=== PATIENT | male | born 1960 | race Caucasian/White ===

== ENCOUNTER → 2023-05-05 13:50 | Outpatient (POV) | payer OTHER, SELFPAY ==
--- NOTE | 2023-05-05 14:19 | EXP.PAIN.OV ---
HPI Data of Consult Patient: new to practice Consult date: 05/05/23 Requesting Physician: Cheryl Moreno APRN Primary Care Provider: Elgin Saini MD Consult Narrative Reason for consult: Right inguinal/groin pain History of present illness: Mr. Greer is a 62 year old male who presents today as a new patient. He is a referral from Dr. Saini' office. Today he rates his pain a 4 out of 10. He does state his pain is all in his right inguinal/groin pain. He does describe this as a pulling sensation with occasional shooting pains into his right thigh. He does state that the pain varies in sensation and aggravated by increased activity. He does state that he was mowing the little bit of grass he had this morning and it did cause significant irritation during today's visit. He states this has been going on for approximately 4 years and is related to a previous hernia repair. He states initially it was related to a work injury that started all of his symptoms. Patient [place] he did see a pain management facility that did prescribe him Lyrica 75 mg twice a day and he would also get inguinal injections approximately every 6 months. Patient does state that this did help along with using a Nexwave by [employer]. He does state that this combination typically did provide significant relief. He is here to establish care for future injections. Patient is currently being managed with pregabalin 75 mg twice a day by Dr. Saini. Patient denies any side effects from this medication. Patient states he had tried [id number] Tylenol and ibuprofen along with heat and ice and topicals with minimal improvement. His Irving is [phone]. Its been reviewed and appropriate. CC: Cheryl Moreno APRN [facility] Disclaimer: The information contained in this section may have been updated after the patient was seen, as this information can be updated by other users. Social History Smoking Status: Unknown if ever smoked alcohol intake: never current occupational status: other Travel in the last 8 weeks: None Review of Systems Review of Systems Review of systems:: pertinent systems reviewed and negative unless documented below Review of systems (narrative): Review of Systems: General: No recent weight changes, no fever, no sleep disturbances Respiratory: No cough, no shortness of air, no recurring pulmonary infections Cardiovascular/peripheral vascular: No chest pain, no palpitations, no edema, no shortness of breath Gastrointestinal: No new onset incontinence, normal bowel movements reported Genitourinary: No new onset incontinence Musculoskeletal: Right inguinal/groin pain Psychiatric: [Normal mood/affect] Neurological: [Denies weakness in extremities], [denies balance issues] Meds Home Medications and Allergies New Prescriptions to Start Prescriptions: Objective Narrative: Physical Exam: General: Alert and oriented x3, no acute distress, pleasant and cooperative Lungs: Respirations even and unlabored, symmetrical chest expansion Eyes: PERRL Musculoskeletal: Flexion and extension of lumbar [spine] somewhat guarded secondary to pain, [antalgic gait noted] Neurological: Speech clear, no gross sensory deficit Oswestry index score of 18 Opioid Risk Tool Opioid Risk Tool-Male Family hx alcohol abuse: No Family hx illegal drugs: No Family hx rx drug abuse: No Personal hx alcohol abuse: No Personal hx illegal drugs: No Personal hx rx drug abuse: No Age: 45+ Hx of sexual abuse: No Mental health issues-ADD,OCD,Bipolar, etc: No Hx of depression: No Male Risk Score: 0 Assessment and Plan *Assessment and plan (1) Right inguinal pain: Status: Acute Category: Medical Code(s): R10.31 - Right lower quadrant pain (2) Chronic pain disorder: Status: Acute Category: Medical Code(s): G89.4 - Chronic pain syndrom
[2023-05-05 14:35] VITALS: BP 149/86; PULSE 94; RESP 18; O2SAT 98; BMI 23.3
== END ==
PROVIDERS: PCP Family Medicine; Visit Provider Nurse Practitioner Family
DX: R10.31 Right lower quadrant pain (principal); G89.4 Chronic pain syndrome
CPT/HCPCS: 99202; G0463

== ENCOUNTER → 2023-06-02 13:43 | Outpatient (POV) | payer OTHER, SELFPAY ==
--- NOTE | 2023-06-02 14:02 | A.OFFVIS_ITS ---
[facility] Pain Management SOAP Note Subjective:: Patient is a pleasant 62-year-old male who presents today for follow-up. We are currently treating the patient for right inguinal pain, chronic pain. Today he rates his pain a 2 out of 10. Patient denies any new trauma or injury. He denies any change location or type of pain he experiences. Patient has had this going on for approximately 4 years from a previous hernia repair. Patient has had inguinal nerve blocks in the past that did provide significant relief. At our last visit we did discuss regarding having this injection done however he wanted to wait because his symptoms were not bothering him as much at that time. Today he does state that it has started to increase and he is interested in scheduling for this injection. Patient is currently managed with pregabalin 75 mg twice a day from Dr. Saini's office. Patient denies any side effects from this medication. His Irving is [phone]. Its been reviewed and appropriate. Review of Systems: General: No recent weight changes, no fever, no sleep disturbances Respiratory: No cough, no shortness of air, no recurring pulmonary infections Cardiovascular/peripheral vascular: No chest pain, no palpitations, no edema, no shortness of breath Gastrointestinal: No new onset incontinence, normal bowel movements reported Genitourinary: No new onset incontinence Musculoskeletal: Right inguinal pain Psychiatric: [Normal mood/affect] Neurological: [Denies weakness in extremities], [denies balance issues] Objective:: Physical Exam: General: Alert and oriented x3, no acute distress, pleasant and cooperative Lungs: Respirations even and unlabored, symmetrical chest expansion Eyes: PERRL Musculoskeletal: Flexion and extension of lumbar [spine] somewhat guarded secondary to pain, [antalgic gait noted] Neurological: Speech clear, no gross sensory deficit Assessment:: Right inguinal pain, chronic pain Plan:: Patient is a spearing seeing significant pain in his right inguinal region related to a previous hernia repair. Patient has had multiple inguinal nerve blocks in the past that did provide significant improvement of more than 75% lasting several months. I have discussed with the patient that he may benefit from right inguinal nerve block. Risk and benefits were discussed with the patient and he would like to proceed forward with this plan of care. Patient wi ll be scheduled for a right inguinal nerve block. Patient has been instructed to contact the clinic with any concerns before the next appointment. Dr. Burnett has reviewed this note and agrees with this plan of care. This note was dictated using voice recognition software and make contain errors or omissions. [facility] Disclaimer: The information contained in this section may have been updated after the patient was seen, as this information can be updated by other users. Medical History (Updated 05/05/23 @ 14:35 by Carla Barnes RN) Arthritis Seasonal allergies Surgical History (Updated 05/05/23 @ 14:36 by Carla Barnes RN) H/O lateral meniscus repair of right knee H/O right inguinal hernia repair Social History (Updated 05/05/23 @ 14:37 by Carla Barnes RN) Smoking Status: Current every day smoker alcohol intake: never current occupational status: unemployed Travel in the last 8 weeks: None
[2023-06-02 14:22] VITALS: BP 142/81; PULSE 87; RESP 20; O2SAT 100; BMI 23.8
== END ==
PROVIDERS: Visit Provider Nurse Practitioner Family
DX: R10.30 Lower abdominal pain, unspecified (principal); G89.29 Other chronic pain
CPT/HCPCS: 99212; G0463

== ENCOUNTER 2023-06-21 10:16 | Day surgery (SDC) | payer OTHER, SELFPAY ==
[2023-06-21 11:01] VITALS: BP 167/86; PULSE 94; RESP 18; TEMP 36.9; O2SAT 98; BMI 23.0
[2023-06-21 11:11] VITALS: BP 155/83; PULSE 94; RESP 18; O2SAT 97
[2023-06-21 11:13] VITALS: BP 155/83; PULSE 94; RESP 18; O2SAT 97
[2023-06-21 11:20] VITALS: BP 143/78; PULSE 87; RESP 18; O2SAT 98
--- NOTE | 2023-06-21 11:28 | EXP.PAIN.PRO ---
Procedure Date: 06/21/23 Time: 11:00 Anesthesiologist:: Edd Lynn CRNA Complications:: None Pre-procedure Diagnosis:: Chronic right ilioinguinal pain. Post-procedure Diagnosis:: Same. Indications for Procedure:: Patient is a very pleasant 62-year-old male that comes our clinic today for right ilioinguinal nerve block. Patient has had this in the past at a different location with some degree of relief. He complains of right inguinal pain that is constant, dull, aching. Ambulation can increase the pain at times. He rates his pain 5/10. Procedure Details:: Details of the procedure explained to the patient. The patient taken the procedure room placed in the supine position on the fluoroscopy table. The area over the right iliac crest was cleaned using chlorhexidine as a cleansing solution. Using fluoroscopy guidance a 25-gauge inch and half needle was used to access the anterior horn of the right iliac crest in 3 separate locations. At each location 4 cc of a solution containing 0.25% Marcaine +1% lidocaine and 20 mg of Depo-Medrol was injected after negative aspiration. Patient tolerated procedure without difficulty. There are no complications. Plan and Disposition:: Patient was discharged without incident.
== END 2023-06-21 11:20 | disposition home or self-care (01) ==
PROVIDERS: PCP Family Medicine; Visit Provider Nurse Anesthetist, Certified Registered
DX: G57.81 Other specified mononeuropathies of right lower limb (principal); R10.30 Lower abdominal pain, unspecified
CPT/HCPCS: 64425; 77002; J1040

== ENCOUNTER → 2023-07-13 11:01 | Outpatient (POV) | payer OTHER, SELFPAY ==
--- NOTE | 2023-07-13 11:38 | A.OFFVIS_ITS ---
[facility] Pain Management SOAP Note Subjective:: Patient is a pleasant 62-year-old male who presents today for follow-up of right ilioinguinal nerve block on 06/21/2023. We are currently treating the patient for right inguinal pain, chronic pain. Today he rates his pain a 2 out of 10. Patient denies any new trauma or injury. He denies any change to location or type of pain he experiences. Patient states he has had at least 50% improvement following this injection and feels like it is still continuing to provide additional relief. Patient states he has been able to increase his activity with decreased pain symptoms. Patient does also use a [employer] TENS unit for additional help. He states with that and his pregabalin 75 mg twice a day from Dr. Saini's office he does well. He has mentioned whether or not down the road if the pregabalin is a medication that our office can continue if needed. His Irving is [phone]. Its been reviewed and appropriate. Review of Systems: General: No recent weight changes, no fever, no sleep disturbances Respiratory: No cough, no shortness of air, no recurring pulmonary infections Cardiovascular/peripheral vascular: No chest pain, no palpitations, no edema, no shortness of breath Gastrointestinal: No new onset incontinence, normal bowel movements reported Genitourinary: No new onset incontinence Musculoskeletal: Right inguinal pain Psychiatric: [Normal mood/affect] Neurological: [Denies weakness in extremities], [denies balance issues] Objective:: Physical Exam: General: Alert and oriented x3, no acute distress, pleasant and cooperative Lungs: Respirations even and unlabored, symmetrical chest expansion Eyes: PERRL Musculoskeletal: Flexion and extension of lumbar [spine] somewhat guarded secondary to pain, [antalgic gait noted] Neurological: Speech clear, no gross sensory deficit Assessment:: Right inguinal pain, chronic pain Plan:: Patient has had significant improvement following his inguinal nerve block and does not require any additional injective therapy at this time. I have counseled the patient that I have no problems taking over his pregabalin prescription however we would want something in writing from Dr. Saini that he wants us to take over this prescription. We will discuss this at future visits. Patient will return to clinic in 1 month for reevaluation of symptoms and plan of care. Patient has been instructed to contact the clinic with any concerns before the next appointment. Dr. Burnett has reviewed this note and agrees with this plan of care. This note was dictated using voice recognition software and make contain errors or omissions. [facility] Disclaimer: The information contained in this section may have been updated after the patient was seen, as this information can be updated by other users. Medical History Arthritis Seasonal allergies Surgical History H/O lateral meniscus repair of right knee H/O right inguinal hernia repair Social History Smoking Status: Current every day smoker alcohol intake: never current occupational status: other Travel in the last 8 weeks: None
[2023-07-13 11:54] VITALS: BP 145/82; PULSE 77; RESP 18; O2SAT 98; BMI 23.4
== END ==
PROVIDERS: PCP Family Medicine; Visit Provider Nurse Practitioner Family
DX: R10.30 Lower abdominal pain, unspecified (principal); G89.29 Other chronic pain
CPT/HCPCS: 99212; G0463

== ENCOUNTER → 2023-08-12 12:57 | Outpatient (POV) | payer OTHER, SELFPAY ==
[2023-08-12 13:20] VITALS: BP 180/93; PULSE 95; RESP 20; BMI 23.3
--- NOTE | 2023-08-12 13:37 | A.OFFVIS_ITS ---
[facility] Pain Management SOAP Note Subjective:: This patient is a very pleasant 62-year-old male that comes our clinic today for follow-up visit. Patient underwent ilioinguinal block on 06/21/2023. Patient states he still 50 to 60% better following the injection. He continues on Lyrica 75 mg 1 p.o. twice daily from his PCP. Patient also using 09 April for additional help. Patient rates his pain today 11/09. Patient reports he has had the inguinal block every 5 to 6 months. I think this is reasonable given the degree of relief. Patient's Irving #[id number] has been reviewed and appropriate. I informed the patient we would take over his Lyrica if in fact Dr. Saini's request. He will discuss with him at his next visit in August. Objective:: Patient is awake alert [place] x3. In no acute distress. Flexion-extension cervical lumbar spine normal. Deep tendon reflexes upper and lower extremities normal. Motor strength upper and lower extremities normal. There is no gross sensory deficit. Gait is normal. Assessment:: Chronic ilioinguinal nerve pain following inguinal hernia repair. Plan:: Patient will return to see us in 3 months. [facility] Disclaimer: The information contained in this section may have been updated after the patient was seen, as this information can be updated by other users. Medical History Arthritis Seasonal allergies Surgical History H/O lateral meniscus repair of right knee H/O right inguinal hernia repair Social History Smoking Status: Current every day smoker alcohol intake: never substance use type: denies use current occupational status: other Travel in the last 8 weeks: None
== END ==
PROVIDERS: PCP Family Medicine; Visit Provider Nurse Anesthetist, Certified Registered
DX: G58.8 Other specified mononeuropathies (principal)
CPT/HCPCS: 99212; G0463

== ENCOUNTER → 2023-11-10 13:10 | Outpatient (POV) | payer OTHER, SELFPAY ==
--- NOTE | 2023-11-10 13:52 | A.OFFVIS_ITS ---
[facility] Pain Management SOAP Note Subjective:: Patient is a pleasant 63-year-old male who presents today for follow-up. We are currently treating the patient for right inguinal pain, chronic pain. Today he rates his pain a 4 out of 10. Patient denies any new trauma or injury. He does state today that his pain is starting to worsen in his right inguinal area. Patient describes this as a aching, throbbing sensation that is worse with increased activity or ambulation. Patient states the pain is all in and around his groin and does interfere with his ability perform activities of daily living such as cooking and cleaning. Patient did previously have a right ilioinguinal nerve block back in May that did provide more than 50 to 60% relief and has lasted up until the last couple of weeks. Patient does feel like his going back towards his baseline and would like to repeat his injection. Patient states on average in the past he has gotten approximately 6 months worth of relief with these injections. He continues to use [employer] TENS unit for additional help. He states with that and his pregabalin 75 mg twice a day from Dr. Saini's office his Irving has been reviewed and is appropriate. Review of Systems: General: No recent weight changes, no fever, no sleep disturbances Respiratory: No cough, no shortness of air, no recurring pulmonary infections Cardiovascular/peripheral vascular: No chest pain, no palpitations, no edema, no shortness of breath Gastrointestinal: No new onset incontinence, normal bowel movements reported Genitourinary: No new onset incontinence Musculoskeletal: Right inguinal pain Psychiatric: [Normal mood/affect] Neurological: [Denies weakness in extremities], [denies balance issues] Objective:: Physical Exam: General: Alert and oriented x3, no acute distress, pleasant and cooperative Lungs: Respirations even and unlabored, symmetrical chest expansion Eyes: PERRL Musculoskeletal: Flexion and extension of lumbar [spine] somewhat guarded secondary to pain Neurological: Speech clear, no gross sensory deficit Assessment:: Right inguinal pain, chronic pain syndrome Plan:: Patient is experiencing worsening pain in his right inguinal region with limited range of motion of his lumbar spine. I have discussed with the patient that he may benefit from repeat right ilioinguinal nerve block. Risk and benefits were discussed with patient and he would like to proceed forward with this plan of care. Patient has not had any blood thinners. Previously patient did have 60% improvement lasting almost 6 months with his last injection done in May. We will schedule the patient for a right ilioinguinal nerve block. Patient has been instructed to contact the clinic with any concerns before the next appointment. Dr. Burnett has reviewed this note and agrees with this plan of care. This note was dictated using voice recognition software and make contain errors or omissions. [facility] Disclaimer: The information contained in this section may have been updated after the patient was seen, as this information can be updated by other users. Medical History (Updated 10/26/23 @ 20:58 by Amrita Smith APRN) Arthritis Right inguinal pain Seasonal allergies Surgical History H/O lateral meniscus repair of right knee H/O right inguinal hernia repair Family History (Updated 10/26/23 @ 15:15 by Panda Bradley) Other No significant family history Social History Smoking Status: Current every day smoker alcohol intake: never substance use type: denies use current occupational status: other Travel in the last 8 weeks: None
[2023-11-10 13:59] VITALS: BP 109/71; PULSE 94; RESP 18; O2SAT 97; BMI 24.7
== END ==
LOC: SC.PAIN 13:11
PROVIDERS: PCP Family Medicine; Visit Provider Nurse Practitioner Family
DX: R10.30 Lower abdominal pain, unspecified (principal); G89.4 Chronic pain syndrome
CPT/HCPCS: 99212; G0463

== ENCOUNTER 2023-11-29 13:20 | Day surgery (SDC) | payer OTHER, SELFPAY ==
[2023-11-29 13:30] VITALS: BP 140/79; PULSE 85; RESP 16; TEMP 36.4; O2SAT 98; BMI 24.9
[2023-11-29 13:50] VITALS: BP 140/74; PULSE 76; RESP 16; O2SAT 98
--- NOTE | 2023-11-29 13:54 | EXP.PAIN.PRO ---
Procedure Date: 11/29/23 Time: 13:45 Anesthesiologist:: Edd Lynn CRNA Complications:: None Pre-procedure Diagnosis:: Right ilioinguinal pain. Post-procedure Diagnosis:: Same. Indications for Procedure:: Very pleasant 63-year-old male that comes our clinic today for repeat right ilioinguinal block. Patient had 4 to 6 months of moderate improvement terms of his overall right inguinal and right testicular pain with previous block. Patient describes his pain as dull, aching, intermittent. He rates his pain 6/10. Procedure Details:: Details of the procedure explained to the patient. The patient taken the procedure room placed in the supine position on the fluoroscopy table. The area over the right iliac crest was cleaned using chlorhexidine as a cleansing solution. Using fluoroscopy guidance a 25-gauge inch and half needle was used to access the anterior horn of the right iliac crest in 3 separate locations. At each location 4 cc of a solution containing 0.25% Marcaine +1% lidocaine and 20 mg of Depo-Medrol was injected after negative aspiration. Patient tolerated procedure without difficulty. There are no complications. Plan and Disposition:: Patient was discharged without incident.
[2023-11-29 13:55] VITALS: BP 124/89; PULSE 62; RESP 18
[2023-11-29] MEDS: methylPREDNISolone ACETATE 80MG/ML VIAL 80 MG (13:55)
[2023-11-29] MEDS: LIDOCAINE 1% 5ML PF VIAL 5 ML (13:55)
[2023-11-29] MEDS: BUPIVACAINE 0.25% 10ML INJ 25 MG IJ (13:55)
[2023-11-29 13:57] VITALS: BP 124/89; PULSE 62; RESP 18; O2SAT 100
== END 2023-11-29 13:50 | disposition home or self-care (01) ==
PROVIDERS: PCP Family Medicine; Visit Provider Nurse Anesthetist, Certified Registered
DX: R10.30 Lower abdominal pain, unspecified (principal); R10.813 Right lower quadrant abdominal tenderness; N50.811 Right testicular pain
CPT/HCPCS: 64425; 77002; J1040

== ENCOUNTER → 2023-12-16 14:42 | Outpatient (POV) | payer MEDICARE, OTHER, SELFPAY ==
--- NOTE | 2023-12-16 15:23 | EXP.PAIN.SOA ---
[facility] Pain Management SOAP Note Subjective:: Patient is a pleasant 63-year-old male who presents today for follow-up of right ilioinguinal nerve block on 11/29/2023. We are currently treating the patient for right inguinal pain, chronic pain. Today he rates his pain a 2 out of 10. Patient denies any new trauma or injury. He does state that he has had at least 50% improvement following this injection and feels like it is still currently providing additional improvement. He states he has been able to increase his activity with decreased pain symptoms and feels overall more functional. He states he does still notice the pain is there however it is much more dull and more manageable. He does state from our last visit he did get added onto the medication of rosuvastatin for his cholesterol. Patient does continue to use his TENS therapy at home and is prescribed pregabalin 75 mg twice a day from Dr. Saini's office. His Irving has been reviewed and is appropriate. Review of Systems: General: No recent weight changes, no fever, no sleep disturbances Respiratory: No cough, no shortness of air, no recurring pulmonary infections Cardiovascular/peripheral vascular: No chest pain, no palpitations, no edema, no shortness of breath Gastrointestinal: No new onset incontinence, normal bowel movements reported Genitourinary: No new onset incontinence Musculoskeletal: Right inguinal pain Psychiatric: [Normal mood/affect] Neurological: [Denies weakness in extremities], [denies balance issues] Objective:: Physical Exam: General: Alert and oriented x3, no acute distress, pleasant and cooperative Lungs: Respirations even and unlabored, symmetrical chest expansion Eyes: PERRL Musculoskeletal: Flexion and extension of lumbar [spine] somewhat guarded secondary to pain, [antalgic gait noted] Neurological: Speech clear, no gross sensory deficit Assessment:: Right inguinal pain, chronic pain Plan:: Patient has had significant improvement following his right inguinal nerve block and does not require any additional injection therapy at this time. Patient does typically get approximately 5 to 6 months with each 1 of these nerve blocks. I have counseled the patient that if he starts having worsening pain before his next appointment he can call and get his visit moved up sooner. Patient will return to clinic in 4 months for reevaluation of symptoms and plan of care. Patient has been instructed to contact the clinic with any concerns before the next appointment. Dr. Burnett has reviewed this note and agrees with this plan of care. This note was dictated using voice recognition software and make contain errors or omissions. [facility] Disclaimer: The information contained in this section may have been updated after the patient was seen, as this information can be updated by other users. Medical History Arthritis Right inguinal pain Seasonal allergies Surgical History H/O lateral meniscus repair of right knee H/O right inguinal hernia repair Family History Other No significant family history Social History Smoking Status: Current every day smoker alcohol intake: never substance use type: denies use current occupational status: other Travel in the last 8 weeks: None
[2023-12-16 15:24] VITALS: BP 151/91; PULSE 78; RESP 18; O2SAT 98; BMI 23.8
== END ==
PROVIDERS: PCP Family Medicine; Visit Provider Nurse Practitioner Family
DX: R10.31 Right lower quadrant pain (principal); G89.29 Other chronic pain
CPT/HCPCS: 99212; G0463

== ENCOUNTER 2024-01-09 13:32 | Outpatient (CLI) | payer MEDICARE, OTHER, SELFPAY ==
[2024-01-09 15:00] LABS: Chol/HDL Ratio 2.7 (1-3.5); Cholesterol 119 mg/dl (140-200); HDL Cholesterol 44 mg/dl (40-60); Triglycerides 126 mg/dl (30-150); VLDL Cholesterol 25 mg/dL (0-40)
[2024-01-09 15:10] LABS: Direct LDL Cholesterol 50.44 mg/dL (100-129)
== END 2024-01-09 23:59 ==
PROVIDERS: PCP Family Medicine; Visit Provider Internal Medicine Cardiovascular Disease
DX: I35.0 Nonrheumatic aortic (valve) stenosis (principal); E78.2 Mixed hyperlipidemia
CPT/HCPCS: 36415; 80061

== ENCOUNTER 2024-01-23 12:50 | Outpatient (CLI) | payer MEDICARE, OTHER, SELFPAY ==
[2024-01-23 14:31] LABS: Alanine Aminotransferase 18 U/L (12-78); Alkaline Phosphatase 101 U/L (38-126); Aspartate Amino Transferase 26 U/L (17-59); Bilirubin,Direct 0.1 mg/dl (0.0-0.4); Bilirubin,Indirect 0.7 mg/dL (0.0-0.9); Bilirubin,Total 0.8 mg/dl (0.2-1.3); Bilirubin,Unconjugated 0.7 mg/dL (0.0-1.1); Total Protein,Serum 6.5 g/dl (6.3-8.2)
== END 2024-01-23 23:59 ==
PROVIDERS: PCP Family Medicine; Visit Provider Internal Medicine Cardiovascular Disease
DX: I35.0 Nonrheumatic aortic (valve) stenosis (principal); E78.2 Mixed hyperlipidemia
CPT/HCPCS: 36415; 80076

== ENCOUNTER 2024-04-12 13:10 | Outpatient (POV) | payer OTHER, MEDICARE, SELFPAY ==
[2024-04-12 13:33] VITALS: BP 146/75; BP 163/84; PULSE 63; RESP 16; O2SAT 97; BMI 23.4
--- NOTE | 2024-04-12 13:49 | EXP.PAIN.SOA ---
[facility] Pain Management SOAP Note Subjective:: Patient is a pleasant 63-year-old male who presents today for 6-month follow-up. Today he rates his pain at 3 out of 10 however states the pain will get up to a 6 out of 10 with increased activity. Patient denies any new trauma or injury. Patient states he continues to have right inguinal pain and describes it as an aching, throbbing sensation that does radiate in and around his groin. Patient states the pain does interfere with his ability perform activities of daily living such as cooking and cleaning. Patient does get significant relief with the nerve blocks that typically last on average about 5 to 6 months. Patient's last injection was on November 29, 2023 that did provide 50% improvement. Patient states that he does get overall decreased pain and better quality of life with these injections. He would like to proceed forward with repeat injections. He is prescribed pregabalin from his PCP. His Irving has been reviewed and is appropriate. Review of Systems: General: No recent weight changes, no fever, no sleep disturbances Respiratory: No cough, no shortness of air, no recurring pulmonary infections Cardiovascular/peripheral vascular: No chest pain, no palpitations, no edema, no shortness of breath Gastrointestinal: No new onset incontinence, normal bowel movements reported Genitourinary: No new onset incontinence Musculoskeletal: Right inguinal pain Psychiatric: [Normal mood/affect] Neurological: [Denies weakness in extremities], [denies balance issues] Objective:: Physical Exam: General: Alert and oriented x3, no acute distress, pleasant and cooperative Lungs: Respirations even and unlabored, symmetrical chest expansion Eyes: PERRL Musculoskeletal: Flexion and extension of lumbar [spine] somewhat guarded secondary to pain, [antalgic gait noted] right inguinal point tenderness Neurological: Speech clear, no gross sensory deficit Assessment:: Chronic pain, right inguinal pain Plan:: Due to the patient starting to experience more pain on a day-to-day basis I have discussed with the patient that he may benefit from a repeat right ilioinguinal nerve block. Risk and benefits were discussed with patient and he would like to proceed forward with this plan of care. Patient has tried and failed conservative therapy including continued at home exercising and stretching between injections. We will schedule the patient for his repeat right ilioinguinal nerve block under fluoroscopy. Patient with his last injection received 50% relief lasting approximately 5 to 6 months. Patient has been instructed to contact the clinic with any concerns before the next appointment. Dr. Burnett has reviewed this note and agrees with this plan of care. This note was dictated using voice recognition software and make contain errors or omissions. [facility] Disclaimer: The information contained in this section may have been updated after the patient was seen, as this information can be updated by other users. Medical History Seasonal allergies Arthritis Right inguinal pain Surgical History H/O lateral meniscus repair of right knee H/O right inguinal hernia repair Family History Other No significant family history Social History Smoking Status: Current every day smoker alcohol intake: never substance use type: denies use current occupational status: employed Travel in the last 8 weeks: None
== END 2024-04-12 23:59 | disposition home or self-care (01) ==
LOC: SC.PAIN 13:11
PROVIDERS: PCP Family Medicine; Visit Provider Nurse Practitioner Family
DX: G89.29 Other chronic pain (principal); R10.30 Lower abdominal pain, unspecified
CPT/HCPCS: 99212; G0463

== ENCOUNTER 2024-05-01 13:22 | Day surgery (SDC) | payer OTHER, SELFPAY ==
[2024-05-01 13:49] VITALS: BP 156/75; PULSE 87; RESP 18; TEMP 36.6; O2SAT 98; BMI 23.0
[2024-05-01] MEDS: LIDOCAINE 1% 5ML PF VIAL 5 ML (14:06)
[2024-05-01 14:07] VITALS: BP 166/84; PULSE 82; RESP 18; O2SAT 98
[2024-05-01] MEDS: BUPIVACAINE 0.25% 10ML INJ 25 MG IJ (14:07)
[2024-05-01] MEDS: methylPREDNISolone ACETATE 80MG/ML VIAL 80 MG (14:07)
[2024-05-01 14:08] VITALS: BP 166/84; PULSE 88; RESP 18; O2SAT 98
--- NOTE | 2024-05-01 14:17 | EXP.PAIN.PRO ---
Procedure Date: 05/01/24 Time: 13:55 Anesthesiologist:: Edd Lynn CRNA Complications:: None Pre-procedure Diagnosis:: Ilioinguinal pain. Right testicular pain. Post-procedure Diagnosis:: Same. Indications for Procedure:: Patient is a pleasant 63-year-old male comes to our clinic today for repeat ilioinguinal hypogastric nerve block. Patient has continued to have some ilioinguinal pain with right testicular radicular symptoms following multiple inguinal hernia repairs. He has had good success with the injection in the past. Procedure Details:: Details of the procedure explained to the patient. The patient taken procedure room placed in the supine position. The area over the right inguinal was cleansed using chlorhexidine as a cleansing solution. Using ultrasound guidance in plane the needle was advanced through the exterior and internal oblique to the ilioinguinal ligament. After negative aspiration 10 cc of a solution containing 0.25% Marcaine +1% lidocaine and 40 mg of Depo-Medrol was injected. Patient tolerated procedure without difficulty. No complications. Plan and Disposition:: Patient was discharged without incident.
[2024-05-01 14:20] VITALS: BP 156/75; PULSE 80; RESP 18; O2SAT 98
== END 2024-05-01 14:23 | disposition home or self-care (01) ==
PROVIDERS: PCP Family Medicine; Visit Provider Nurse Anesthetist, Certified Registered
DX: G57.81 Other specified mononeuropathies of right lower limb (principal); N50.811 Right testicular pain
CPT/HCPCS: 64425; 76942; J1010

== ENCOUNTER 2024-05-24 13:16 | Outpatient (POV) | payer OTHER, MEDICARE, SELFPAY ==
[2024-05-24 13:46] VITALS: BP 159/81; PULSE 81; RESP 18; O2SAT 98; BMI 23.3
--- NOTE | 2024-05-24 14:04 | EXP.PAIN.SOA ---
[facility] Disclaimer: The information contained in this section may have been updated after the patient was seen, as this information can be updated by other users. Medical History (Updated 05/24/24 @ 14:05 by Cheryl Moreno APRN) Right inguinal pain Seasonal allergies Arthritis Surgical History H/O lateral meniscus repair of right knee H/O right inguinal hernia repair Family History Other No significant family history Social History Smoking Status: Current every day smoker alcohol intake: never substance use type: denies use current occupational status: other Travel in the last 8 weeks: None PM Subjective & Objective Subjective Subjective:: Patient is a pleasant 63-year-old male who presents today for follow-up of his right ilioinguinal hypogastric nerve block on 05/01/2024. Today he rates his pain a 2 out of 10. Patient denies any new changes or injuries. He does state that he has had at least 50% relief. He states this is still ongoing. He states he is able to move around easier with increased function and does not even notice much better range of motion. Patient states often times when the pain is worse he can barely lift his leg on the right side however now he is able to do this with no issues. Patient is prescribed gabapentin from his PCP. Patient does typically get about 6 months with each of these injections. His Irving has been reviewed and is appropriate. Review of Systems: General: No recent weight changes, no fever, no sleep disturbances Respiratory: No cough, no shortness of air, no recurring pulmonary infections Cardiovascular/peripheral vascular: No chest pain, no palpitations, no edema, no shortness of breath Gastrointestinal: No new onset incontinence, normal bowel movements reported Genitourinary: No new onset incontinence Musculoskeletal: Right inguinal pain Psychiatric: [Normal mood/affect] Neurological: [Denies weakness in extremities], [denies balance issues] Pain at rest (0-10 scale): 2 Objective Objective:: Physical Exam: General: Alert and oriented x3, no acute distress, pleasant and cooperative Lungs: Respirations even and unlabored, symmetrical chest expansion Eyes: PERRL Musculoskeletal: Flexion and extension of lumbar spine within normal limits Neurological: Speech clear, no gross sensory deficit Has patient had previous pain injection?: Yes Percent improvement in pain since last injection: 50% Conservative treatment options previously tried: Home exercise plan Length of treatment: Longer than 12 weeks Meds Home Medications and Allergies Home Medications ?Medication ?Instructions ?Recorded ?Confirmed ?Type pregabalin 75 mg capsule 75 mg PO DAILY Pain 05/05/23 05/01/24 History ofloxacin 0.3 % eye drops 1 drp Eye-Left QID #10 mL 10/26/23 05/01/24 Rx rosuvastatin 20 mg tablet 20 mg PO DAILY 04/12/24 05/01/24 History New Prescriptions to Start Prescriptions: Allergies Allergy/AdvReac Type Severity Reaction Status Date / Time No Known Allergies Allergy Verified 11/29/23 13:35 Assessment and Plan *Assessment and plan (1) Right inguinal pain: Status: Acute Category: Medical Code(s): R10.31 - Right lower quadrant pain Plan Patient has had significant improvement following this injection and does not require any additional injection therapy at this time. Patient will return to clinic in 5 months for reevaluation of symptoms and plan of care. Patient has been instructed to contact the clinic with any concerns before the next appointment. Dr. Burnett has reviewed this note and agrees with this plan of care. This note was dictated using voice recognition software and make contain errors or omissions. All injections are used with Lidocaine or Bupivacaine and Depo Medrol.
== END 2024-05-24 23:59 | disposition home or self-care (01) ==
PROVIDERS: PCP Family Medicine; Visit Provider Nurse Practitioner Family
DX: R10.31 Right lower quadrant pain (principal); F17.210 Nicotine dependence, cigarettes, uncomplicated
CPT/HCPCS: 99212; G0463

== ENCOUNTER 2024-08-27 10:57 | Day surgery (SDC) | payer MEDICARE, OTHER, SELFPAY ==
[2024-08-22 10:16] VITALS: BMI 22.4
[2024-08-27 11:46] VITALS: BP 140/84; PULSE 89; RESP 20; TEMP 36.2; O2SAT 98
[2024-08-27] MEDS: LACTATED RINGERS 1000ML 1,000 ML 25 ML IV (11:54)
--- NOTE | 2024-08-27 12:04 | P.PNANES_ITS ---
[facility] Disclaimer: The information contained in this section may have been updated after the patient was seen, as this information can be updated by other users. Medical History Hx of multiple pulmonary nodules History of cardiac murmur Right inguinal pain Seasonal allergies Arthritis Surgical History H/O lateral meniscus repair of right knee H/O right inguinal hernia repair Family History Other No significant family history Social History Smoking Status: Current every day smoker alcohol intake: never substance use type: denies use current occupational status: other Travel in the last 8 weeks: None [facility] Anesthesia Checklist Patient Identification Patient Identification: Arm Band Structural Data Admitted From: Home Planned Operative Procedure/s: Colonoscopy Consent for Planned Operative Procedure(s) Verified: Yes Verified Documents: Surgical Consent and History and Physical NPO Status Verified Time NPO: 00:00 Additional verifications Anesthesia Reactions: No Hx Blood Transfusions: No Blood Transfusion Reaction: No Airway Assessment Mallampati Score:: Class II C-Spine Mobility Assessed: Yes TMJ Mobility Assessed: Yes Dentition: Dentures-good fit (upper partial removed) Neurological Assessment Level of Consciousness: Awake, Alert and Appropriate Anesthesia Plan Anesthesia Risk discussed: Yes Anesthesia Plan: Verified ASA Class: II Anesthesia Type: MAC
--- NOTE | 2024-08-27 12:33 | EXP.HP ---
History of Present Illness *Admission Date: 08/27/24 *Reason for visit:: Positive Cologuard *History of present illness: Mr. Greer is a 63-year-old gentleman who is here for positive Cologuard testing. The examination is deemed medically necessary for colonoscopy. The patient has been seen, interviewed and examined prior to the procedure by both myself and the anesthesia provider. [facility] Disclaimer: The information contained in this section may have been updated after the patient was seen, as this information can be updated by other users. Medical History (Updated 08/27/24 @ 12:43 by William Roca II, MD) Hx of multiple pulmonary nodules History of cardiac murmur Right inguinal pain Seasonal allergies Arthritis Surgical History H/O lateral meniscus repair of right knee H/O right inguinal hernia repair Family History Other No significant family history Social History Smoking Status: Current every day smoker alcohol intake: never substance use type: denies use current occupational status: other Travel in the last 8 weeks: None Other Medical History Have you received the Flu Vaccine for this season: No Have you received the Pneumonia Vaccine: No Review of Systems Review of Systems Review of systems (narrative): Negative *Cardiovascular Comments: Negative *Gastrointestinal Comments: Negative *Genitourinary Comments: Negative *Musculoskeletal Comments: Negative *Neurologic Comments: Negative Meds Home Medications and Allergies Home Medications ?Medication ?Instructions ?Recorded ?Confirmed ?Type pregabalin 75 mg capsule 75 mg PO DAILY Pain 05/05/23 08/22/24 History rosuvastatin 20 mg tablet 20 mg PO DAILY 04/12/24 08/22/24 History New Prescriptions to Start Prescriptions: Allergies Allergy/AdvReac Type Severity Reaction Status Date / Time gabapentin Allergy Nausea Verified 08/27/24 11:45 Exam Data for Last 24 hours Vital signs and Labs for Last 24 Hours: Temp Pulse Resp BP Pulse Ox O2 Del Method 97.1 F L 89 20 140/84 98 Room Air 08/27/24 11:46 08/27/24 11:46 08/27/24 11:46 08/27/24 11:46 08/27/24 11:46 08/27/24 11:46 *Routine HEENT Exam Head: Present normocephalic Eye: Present EOMI and PERRL ENT: Present mucous membranes moist *Routine Neck Exam Neck: Present supple *Routine Respiratory Exam Respiratory: Present CTA bilaterally *Routine Cardiovascular Exam Cardiovascular: Present RRR *Routine Abdominal Exam Abdominal: Present soft and normoactive bowel sounds; Absent tenderness *Routine Rectal Exam Rectal:: deferred *Routine Genitalia Exam Genitalia:: deferred *Routine Extremities Exam Extremities: Absent cyanosis, clubbing or edema *Routine Skin Exam Skin: Present warm; Absent rash *Routine Neurological Exam Neurological: Present alert and oriented X3 Assessment and Plan *Assessment and plan (1) Positive colorectal cancer screening using Cologuard test: Status: Acute Category: Medical Code(s): R19.5 - Other fecal abnormalities Plan A/P: 1. Positive Cologuard is the preprocedural diagnosis. The patient will be anesthetized/sedated using MAC sedation. The patient has been seen and examined. Cardiac and lung assessment prior to the examination is stable. Proceed with planned colonoscopy
[2024-08-27 12:38] VITALS: O2SAT 98
--- NOTE | 2024-08-27 12:43 | HMH.PROCNOTE ---
[facility] Procedure Note Date: 08/27/24 Time: 13:06 Procedure Note:: Colonoscopy Procedure Report: Colonoscopy with cold snare polypectomy, snare cautery and Endo Clip placement Endoscopist: William Roca II, MD Referring physician: Elgin Saini MD Date of Procedure: August 27, 2024 Equipment: Olympus 190 variable stiffness pediatric colonoscope Sedation: MAC sedation Indication: Mr. Greer is a 63-year-old gentleman who is here for colonoscopy secondary to a positive Cologuard. This is his first colonoscopy. He reports no abdominal pain, weight loss, change in his bowel habits or rectal bleeding. He reports no family history of colon cancer. He does get occasional loose stools but has mostly regular bowel function. Procedure: Prior to the procedure, a history and physical exam was performed, and patient's medications and allergies were reviewed. The risks, benefits and alternatives of the sedation and procedure were discussed with the patient. All questions were answered and informed consent was obtained. The patient was brought to the procedure room. Patient identification and proposed procedure were verified by the physician and the nurse. The patient was placed in a left lateral decubitus position and the scope was passed under direct vision. Throughout the procedure, the patient's blood pressure, pulse, and oxygen saturations were monitored continuously. The colonoscopy was accomplished without difficulty. The patient tolerated the procedure well. Findings: On digital rectal examination there was normal rectal tone. There were no external hemorrhoids. The prostate was mildly firm, 2+, symmetric without nodules. The colonoscope was introduced through the anal canal to the rectum and advanced to the cecum. The ileocecal valve and appendiceal orifice were identified. The scope was advanced a short distance into the ileum which appeared grossly normal. The scope was then withdrawn into the colon. There were 7 colon polyps (cecum x 1 (5 mm) ascending x 2 (5 and 6 mm), transverse x 2 (6 and 8 mm), descending x 1 (5 to 6 mm) and pedunculated sigmoid x 1 (16 mm)). All but the sigmoid polyp were removed via cold snare polypectomy. The pedunculated sigmoid larger polyp was removed via snare cautery. There was minor heme at the stalk site of polypectomy and a single Endo Clip was placed over the stalk to provide hemostasis. The remaining cecum, ascending and transverse colon and mucosa were grossly normal. There were scattered diverticuli throughout the descending and sigmoid colon (LEFT colon). There was some mild haustral edema/patchy erythema of the sigmoid colon suggestive mild chronic sigmoid diverticulitis. The rectum itself was normal. Upon retroflexion within the rectum there were grade 1-2 internal hemorrhoids. The preparation was excellent throughout with [place] Preparation Score of 9. The cecal time was 18 minutes. Impression: 1. Pedunculated sigmoid polyp (16 mm) 2. 6 additional colonic polyps (ranging in size from 5 to 8 mm) 3. Left-sided diverticulosis with evidence of patchy focal mild chronic sigmoid diverticulitis 4. Grade 1-2 internal hemorrhoids Plan: I will follow-up the polyp histology and recommend repeat surveillance colonoscopy again in 3 years. I would encourage bulking psyllium fiber supplementation on a regular and daily basis.
[2024-08-27 13:07] VITALS: BP 105/71; PULSE 81; RESP 16; TEMP 36.6; O2SAT 96
[2024-08-27 13:17] VITALS: BP 132/65; PULSE 81; RESP 16; O2SAT 97
[2024-08-27 13:37] VITALS: BP 113/82; PULSE 84; RESP 18; O2SAT 98
== END 2024-08-27 13:37 | disposition home or self-care (01) ==
PROVIDERS: PCP Family Medicine; Visit Provider Internal Medicine Gastroenterology
PROC: 0DJD8ZZ Inspection of Lower Intestinal Tract, Via Natural or Artificial Opening Endoscopic (ICD-10-PCS; CPT 45378; principal; 2024-08-27 12:30)
DX: Z12.11 Encounter for screening for malignant neoplasm of colon (principal); R19.5 Other fecal abnormalities; D12.2 Benign neoplasm of ascending colon; D12.0 Benign neoplasm of cecum; D12.4 Benign neoplasm of descending colon; D12.5 Benign neoplasm of sigmoid colon; D12.3 Benign neoplasm of transverse colon; K57.32 Diverticulitis of large intestine without perforation or abscess without bleeding; K64.1 Second degree hemorrhoids; F17.210 Nicotine dependence, cigarettes, uncomplicated
CPT/HCPCS: 45385; 88305; J7120

== ENCOUNTER 2024-10-15 13:54 | Outpatient (POV) | payer MEDICARE, SELFPAY ==
--- NOTE | 2024-10-15 14:27 | A.OFFVIS_ITS ---
[facility] Disclaimer: The information contained in this section may have been updated after the patient was seen, as this information can be updated by other users. Medical History (Updated 08/27/24 @ 12:43 by William Roca II, MD) Hx of multiple pulmonary nodules History of cardiac murmur Right inguinal pain Seasonal allergies Arthritis Surgical History H/O lateral meniscus repair of right knee H/O right inguinal hernia repair Family History Other No significant family history Social History Smoking Status: Current every day smoker alcohol intake: never substance use type: denies use current occupational status: other Travel in the last 8 weeks: None PM Subjective & Objective Subjective Subjective:: Patient is a pleasant 64-year-old male who presents today for worsening right inguinal pain. Today he rates his pain a 4 out of 10 however states it will go to a 6 out of 10 with increased activity. Patient denies any new trauma or injury. He does state that he still has the chronic right inguinal pain related to his previous hernia surgery. Patient does describe it as an aching, throbbing sensation with occasional sharp shooting pains. Patient does typically get more than 50% relief with ileoinguinal nerve blocks and his last one was in April. Patient does state today that he feels like it is wearing off and would like to get scheduled back for a repeat injection. Patient does state the pain is starting to interfere with his ability perform activities of daily living such as cooking and cleaning. Patient does on average given right around 5 to 6 months relief with these injections. He does state unrelated to our office that he is currently waiting for an appointment with Dr. Kovacs for possible left foot issues. He states that his primary care sent that appointment referral. He denies any other changes from her last appointment. His Irving has been reviewed and is appropriate. Review of Systems: General: No recent weight changes, no fever, no sleep disturbances Respiratory: No cough, no shortness of air, no recurring pulmonary infections Cardiovascular/peripheral vascular: No chest pain, no palpitations, no edema, no shortness of breath Gastrointestinal: No new onset incontinence, normal bowel movements reported Genitourinary: No new onset incontinence Musculoskeletal: Right inguinal pain Psychiatric: [Normal mood/affect] Neurological: [Denies weakness in extremities], [denies balance issues] Pain at rest (0-10 scale): 6 Objective Objective:: Physical Exam: General: Alert and oriented x3, no acute distress, pleasant and cooperative Lungs: Respirations even and unlabored, symmetrical chest expansion Eyes: PERRL Musculoskeletal: Flexion and extension of lumbar [spine] somewhat guarded secondary to pain, [antalgic gait noted] point tenderness along the right inguinal area Neurological: Speech clear, no gross sensory deficit Has patient had previous pain injection?: No Conservative treatment options previously tried: Home exercise plan Length of treatment: Longer than 12 weeks Meds Home Medications and Allergies Home Medications ?Medication ?Instructions ?Recorded ?Confirmed ?Type pregabalin 75 mg capsule 75 mg PO DAILY Pain 05/05/23 08/22/24 History rosuvastatin 20 mg tablet 20 mg PO DAILY 04/12/24 08/22/24 History New Prescriptions to Start Prescriptions: Allergies Allergy/AdvReac Type Severity Reaction Status Date / Time gabapentin Allergy Nausea Verified 08/27/24 11:45 Assessment and Plan *Assessment and plan (1) Right inguinal pain: Status: Acute Category: Medical Code(s): R10.31 - Right lower quadrant pain Plan Patient is experiencing increasing pain in his right inguinal area with point tenderness. Patient denies get approximately 5 to 6 months relief from right ilioinguinal nerve blocks from our office that do provide more than 50% relief. I have reviewed over risk and benefits of repeat injection and he would like to proceed forward with this plan of care. Patient has continued conservative treatment including oral medications of Tylenol and ibuprofen along with heat and ice and topicals and continued at home stretching exercise for longer than 12 weeks in between injections. Patient does get significant improvement in function from our injections. Patient will be scheduled for repeat right ilioinguinal nerve block. Patient has been instructed to contact the clinic with any concerns before the next appointment. Dr. Burnett has reviewed this note and agrees with this plan of care. This note was dictated using voice recognition software and make contain errors or omissions. All injections are used with Lidocaine, Bupivacaine and Depo Medrol. Occasionally urine drug screen is needed to verify patient's compliance with our office pain contract. This is ordered based off specific treatments related to chronic pain with the potential to abuse certain medications.
[2024-10-15 15:50] VITALS: BP 130/78; PULSE 93; RESP 14; O2SAT 93; BMI 24.4
== END 2024-10-15 23:59 | disposition home or self-care (01) ==
LOC: SC.PAIN 13:57
PROVIDERS: PCP Family Medicine; Visit Provider Nurse Practitioner Family
DX: R10.31 Right lower quadrant pain (principal); F17.210 Nicotine dependence, cigarettes, uncomplicated; Z73.89 Other problems related to life management difficulty
CPT/HCPCS: 99212; G0463

== ENCOUNTER 2024-11-14 12:55 | Outpatient (CLI) | payer MEDICARE, OTHER, SELFPAY ==
--- NOTE | 2024-11-14 12:59 | XR_ITS ---
FINAL REPORT CLINICAL HISTORY: Foot pain FINDINGS: Three views show no evidence of acute displaced fracture or dislocation of the visualized bony architecture. There is mild calcaneal spurring. There are no significant arthritic changes. IMPRESSION: No acute findings or significant arthritic disease. Reviewed, Interpreted and Dictated by Terell Odonnell MD Transcribed by Ijeoma Alonzo Authenticated and [facility]
--- NOTE | 2024-11-14 12:59 | XR_ITS ---
FINAL REPORT CLINICAL HISTORY: Foot pain FINDINGS: Three views show no evidence of acute displaced fracture or dislocation of the visualized bony architecture. There is mild to moderate calcaneal spurring. There are no significant arthritic changes. IMPRESSION: No acute findings or significant arthritic disease. Reviewed, Interpreted and Dictated by Terell Odonnell MD Transcribed by Ijeoma Alonzo Authenticated and [facility]
== END 2024-11-14 23:59 | disposition home or self-care (01) ==
LOC: RAD 12:57
PROVIDERS: PCP Family Medicine; Visit Provider Nurse Practitioner
DX: M72.2 Plantar fascial fibromatosis (principal); M79.671 Pain in right foot; M79.672 Pain in left foot
CPT/HCPCS: 73630

== ENCOUNTER 2024-11-20 13:36 | Day surgery (SDC) | payer OTHER, SELFPAY ==
[2024-11-20 14:02] VITALS: BP 150/78; PULSE 76; RESP 18; O2SAT 98; BMI 23.7
--- NOTE | 2024-11-20 14:09 | EXP.PAIN.PRO ---
Procedure Date: 11/20/24 Time: 14:00 Anesthesiologist:: Edd Lynn CRNA Complications:: None Pre-procedure Diagnosis:: Right testicular pain. Right inguinal pain. Status post right hernia repair. Post-procedure Diagnosis:: Same. Indications for Procedure:: Patient is a pleasant 64-year-old male who comes our clinic today for repeat of the right ilioinguinal nerve block. Patient is status post right inguinal hernia repair. Continues with right inguinal pain. Right testicular pain. He rates his pain 6/10. He reports responding very well to ilioinguinal nerve blocks in the past. Procedure Details:: Details of the procedure explained to the patient. The patient taken procedure room placed in the supine position. The area over the right inguinal was cleansed using chlorhexidine as a cleansing solution. Using ultrasound guidance in plane the needle was advanced through the exterior and internal oblique to the ilioinguinal ligament. After negative aspiration 10 cc of a solution containing 0.25% Marcaine +1% lidocaine and 40 mg of Depo-Medrol was injected. Patient tolerated procedure without difficulty. No complications. Plan and Disposition:: Patient was discharged without incident.
[2024-11-20 14:10] VITALS: BP 157/77; PULSE 87; RESP 17; O2SAT 96
[2024-11-20] MEDS: BUPIVACAINE 0.25% 10ML INJ 25 MG IJ (14:33)
[2024-11-20] MEDS: LIDOCAINE 1% 5ML PF VIAL 5 ML (14:34)
[2024-11-20 14:35] VITALS: BP 167/83; PULSE 83; RESP 18; O2SAT 97
== END 2024-11-20 14:10 | disposition home or self-care (01) ==
PROVIDERS: PCP Family Medicine; Visit Provider Nurse Anesthetist, Certified Registered
DX: R10.31 Right lower quadrant pain (principal); N50.811 Right testicular pain; Z98.890 Other specified postprocedural states
CPT/HCPCS: 64425; 77002; J1010

== ENCOUNTER 2024-12-06 13:03 | Outpatient (POV) | payer OTHER, SELFPAY ==
--- NOTE | 2024-12-06 13:34 | A.OFFVIS_ITS ---
[facility] Disclaimer: The information contained in this section may have been updated after the patient was seen, as this information can be updated by other users. Medical History Hx of multiple pulmonary nodules History of cardiac murmur Right inguinal pain Seasonal allergies Arthritis Surgical History H/O lateral meniscus repair of right knee H/O right inguinal hernia repair Family History Other No significant family history Social History Smoking Status: Current every day smoker alcohol intake: never substance use type: denies use current occupational status: other Travel in the last 8 weeks: None PM Subjective & Objective Subjective Subjective:: Patient is a pleasant 64-year-old male who presents today for follow-up of his repeat right ilioinguinal nerve block on 11/20/2024. Today he rates his pain a 2 out of 10. He states that he has had 75% relief following this injection and feels like it is still working well. He states he has been able to move around easier with overall decreased pain and feels much more functional. Patient does typically get about 5 to 6 months relief with each of these injections. His Irving has been reviewed and is appropriate. Review of Systems: General: No recent weight changes, no fever, no sleep disturbances Respiratory: No cough, no shortness of air, no recurring pulmonary infections Cardiovascular/peripheral vascular: No chest pain, no palpitations, no edema, no shortness of breath Gastrointestinal: No new onset incontinence, normal bowel movements reported Genitourinary: No new onset incontinence Musculoskeletal: Right inguinal pain Psychiatric: [Normal mood/affect] Neurological: [Denies weakness in extremities], [denies balance issues] Pain at rest (0-10 scale): 2 Objective Objective:: Physical Exam: General: Alert and oriented x3, no acute distress, pleasant and cooperative Lungs: Respirations even and unlabored, symmetrical chest expansion Eyes: PERRL Musculoskeletal: Flexion and extension of lumbar [spine] somewhat guarded secondary to pain, [antalgic gait noted] Neurological: Speech clear, no gross sensory deficit Has patient had previous pain injection?: Yes Percent improvement in pain since last injection: 75% Conservative treatment options previously tried: Home exercise plan Length of treatment: Longer than 12 weeks Meds Home Medications and Allergies Home Medications ?Medication ?Instructions ?Recorded ?Confirmed ?Type pregabalin 75 mg capsule 75 mg PO DAILY Pain 05/05/23 11/20/24 History rosuvastatin 20 mg tablet 20 mg PO DAILY 04/12/24 11/20/24 History melatonin 5 mg capsule 5 mg PO HS 11/13/24 11/20/24 History sodium,potassium,mag sulfates 17.5 PO ONCE 11/13/24 11/13/24 History gram-3.13 gram-1.6 gram oral soln New Prescriptions to Start Prescriptions: Allergies Allergy/AdvReac Type Severity Reaction Status Date / Time gabapentin Allergy Nausea Verified 11/13/24 14:06 Assessment and Plan *Assessment and plan (1) Right inguinal pain: Status: Acute Category: Medical Code(s): R10.31 - Right lower quadrant pain Plan Patient has had significant improvement and does not require any additional injection therapy at this time. Patient will return to clinic in about 4 months for reevaluation of symptoms and plan of care. Patient has been instructed to contact the clinic with any concerns before the next appointment. Dr. Burnett has reviewed this note and agrees with this plan of care. This note was dictated using voice recognition software and make contain errors or omissions. All injections are used with Lidocaine, Bupivacaine and Depo Medrol. Occasionally urine drug screen is needed to verify patient's compliance with our office pain contract. This is ordered based off specific treatments related to chronic pain with the potential to abuse certain medications.
[2024-12-06 15:12] VITALS: BP 149/79; PULSE 91; RESP 16; O2SAT 99; BMI 23.3
== END 2024-12-06 23:59 | disposition home or self-care (01) ==
LOC: SC.PAIN 13:04
PROVIDERS: PCP Family Medicine; Visit Provider Nurse Practitioner Family
DX: R10.31 Right lower quadrant pain (principal); F17.200 Nicotine dependence, unspecified, uncomplicated
CPT/HCPCS: 99212; G0463

== ENCOUNTER 2025-02-25 13:32 | Outpatient (CLI) | payer MEDICARE, OTHER, SELFPAY ==
[2025-02-25 13:51] LABS: Immunoglobulin A, Qn, Serum ND; Immunoglobulin G, Qn, Serum ND; Immunoglobulin M, Qn, Serum ND
[2025-02-25 14:26] LABS: Basophils # 0.1 K/mm3 (0-0.2); Basophils % 0.7 % (0.1-2.0); Eosinophils # 0.2 Kmm3 (0.0-0.4); Eosinophils % 1.8 % (0.1-12.0); Hemoglobin 15.9 g/dL (14.1-18.0); Lymphocytes # 1.5 K/mm3 (0.7-4.5); Lymphocytes % 17.8 % (10-50); Mean Corpuscular HGB Conc 33.1 g/dL (31.8-35.4); Mean Corpuscular Hemoglobin 30.8 pg (27.0-31.2); Mean Corpuscular Volume 92.8 fl (80-94); Mean Platelet Volume 10.9 fl (7.4-10.4); Monocytes # 0.5 K/mm3 (0.1-1.0); Monocytes % 6.3 % (1.7-9.3); Neutrophils # 6.2 K/mm3 (1.8-7.8); Neutrophils % 73.2 % (37.0-80.0); Nucleated Red Blood Cells # 0 10^3/uL; Nucleated Red Blood Cells % 0 %; Platelet Count 191 K/mm3 (142-424); Red Blood Count 5.17 M/mm3 (4.60-6.20); Red Cell Distribution Width-SD 51.8 fL; White Blood Count 8.5 K/mm3 (4.8-10.8)
[2025-02-25 14:56] LABS: Erythrocyte Sedimentation Rate 1 mm/hr (0-20)
[2025-02-25 15:55] LABS: Alanine Aminotransferase 21 U/L (12-78); Albumin Level 3.8 g/dl (3.5-5.0); Albumin/Globulin Ratio 1.4 (1.1-1.8); Alkaline Phosphatase 91 U/L (38-126); Anion Gap 7.4 mEq/L (5-15); Aspartate Amino Transferase 25 U/L (17-59); Bilirubin,Total 0.9 mg/dl (0.2-1.3); Blood Urea Nitrogen 11 mg/dl (9-20); Calcium 8.9 mg/dl (8.4-10.2); Carbon Dioxide 25 mmol/L (22.0-30.0); Chloride 110 mmol/L (98-107); Estimated Glomerular Filt Rate 97 ml/min (>60); GFR (African American) 117 ML/MIN (>60); Globulin 2.7 g/dL (1.3-3.2); Glucose 89 mg/dl (74-100); Potassium 4.4 mmoL/L (3.5-5.1); Sodium 138 mmol/L (136-145); Total Protein,Serum 6.5 g/dl (6.3-8.2)
[2025-02-25 16:46] LABS: Vitamin B12 269 pg/mL (239-931)
[2025-02-25 17:05] LABS: Folate 8.62 ng/mL
[2025-02-26 10:36] LABS: Anti-Centromere B Antibodies <0.2 AI (0.0-0.9); Anti-DNA (DS) Ab Qn 1 IU/mL (0-9); Anti-Jo-1 <0.2 AI (0.0-0.9); Anti-Smith Antibody <0.2 AI (0.0-0.9); Antichromatin Antibodies <0.2 AI (0.0-0.9); Antiscleroderma-70 Antibodies <0.2 AI (0.0-0.9); RNP Antibodies <0.2 AI (0.0-0.9); Sjogren's Anti-SS-A <0.2 AI (0.0-0.9); Sjogren's Anti-SS-B <0.2 AI (0.0-0.9)
[2025-02-26 15:22] LABS: Albumin 3.6 g/dL (2.9-4.4); Alpha-1-Globulin 0.3 g/dL (0.0-0.4); Alpha-2-Globulin 0.8 g/dL (0.4-1.0); Gamma Globulin 0.8 g/dL (0.4-1.8); Protein, Total 6.4 g/dL (6.0-8.5)
== END 2025-02-25 23:59 | disposition home or self-care (01) ==
LOC: LAB 13:34
PROVIDERS: PCP Family Medicine; Visit Provider Specialist
DX: G62.9 Polyneuropathy, unspecified (principal)
CPT/HCPCS: 36415; 80053; 82607; 82746; 84155; 84165; 85025; 85651; 86225; 86235; 86334

== ENCOUNTER 2025-03-21 13:00 | Outpatient (RCR) | payer MEDICARE, OTHER, SELFPAY ==
--- NOTE | 2025-03-19 17:33 | HMH.PTOPEV ---
PT Outpatient Evaluation Rehab PT Outpatient Evaluation Start: 03/19/25 17:10 Freq: Status: Active Protocol: Document 03/19/25 17:10 NANCIE (Rec: 03/19/25 17:33 NANCIE [id number]) E-signed By Pérez Figueroa, PT Outpatient Therapy Subjective History Subjective History This is the initial PT eval for Leo Greer, 64 yowm who presents with c/o B foot, ankle, and calf pain x ~ 8 mos with insidious onset of symptoms. He reports no injury or significant change in activity that he has performed prior to his pain beginning. He does report usually his R foot is more painful than the L. He has a night splint, which he wears per podiatry recommendation for ~ 1 hr ea night, switching R to L. He has PMH of R inguinal hernia repair ~ 6 yrs ago with continued chronic neurogenic pain related. 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 Bilateral lateral and medial plantar nerve responses were present and symmetrical -F waves of bilateral fibular and tibial nerves were prolonged -H?reflexes were present and symmetrical -EMG exam of right leg shows evidence of chronic neuropathic changes including long?duration, polyphasic motor units -NCV?EMG results are consistent with generalized sensory and early motor polyneuropathy mainly of demyelinating type Chief Complaint Pain Symptom Type Ache,Sharp,Tingling Symptoms Relieved By Rest/Positioning Symptoms Aggravated By Physical Activity,Walking Prior Functional Limitations None Current Functional Limitations Standing,Walking Symptom Description Constant but Variable Level of pain today (0-10) 3 Pain scale - at its worst (0-10) 6 Ankle/Foot Eval Gait Observation General Gait Pattern Observation No Deviations/Normal Assistive Device Ambulation Assistive Device None Palpation Tenderness right Ankle/Foot Palpation Findings Tenderness Ankle/Foot Palpation Overall Comment 1/4 medial calcaneal tuberosity, 2/4 distal plantar fascia ROM bilateral Ankle/Foot Dorsiflexion w/Knee Extended 0-8 Active Range Motion (degrees) Ankle/Foot Plantar Flexion Active Range 0-28 of Motion (degrees) Ankle/Foot Eversion Active Range of 0-5 Motion (degrees) Ankle/Foot Inversion Active Range of 0-18 Motion (degrees) MMT Ankle Dorsiflexion Strength Grade 5 Normal Ankle Plantarflexion Strength Grade 5 Normal Foot Eversion Strength Grade 5 Normal Foot Inversion Strength Grade 5 Normal Special Tests Ankle Anterior Drawer Test Negative Left,Negative Right Ankle Eversion Test Negative Left,Negative Right Talar Tilt Test Negative Left,Negative Right Ankle Inversion (supination) Test Negative Left,Negative Right Ankle Posterior Drawer Test Negative Left,Negative Right Lower Extremity Functional Index Activities Today, do you or would you have any difficulty at all with: a.Any of your usual work, housework or A little bit of difficulty school activities b. Your usual hobbies, recreational or Moderate difficulty sporting activities c. Getting into or out of the bath A little bit of difficulty d. Walking between rooms A little bit of difficulty e. Putting on your shoes or socks No difficulty f. Squatting A little bit of difficulty g. Lifting an object, like a bag of No difficulty groceries from the floor h. Performing light activities around Moderate difficulty your home i. Performing heavy activities around Moderate difficulty your home j. Getting into or out of a car A little bit of difficulty k. Walking 2 blocks No difficulty l. Walking a mile A little bit of difficulty m. Going up or down 10 stairs (about 1 No difficulty flight of stairs) n. Standing for 1 hour A little bit of difficulty o. Sitting for 1 hour A little bit of difficulty p. Running on even ground Quite a bit of difficulty q. Running on uneven ground Quite a bit of difficulty r. Making sharp turns while running fast Extreme difficulty or unable to perform activity s. Hopping Moderate difficulty t. Rolling over in bed A little bit of difficulty LEFI Score Lower Extremity Functional Index Score 53 Miscellaneous Dx PT Eval Objective Objective Pt presents with baseline high flexible arch in B feet. R foot with plantarflexed 1st ray noted. B feet with toes 2-5 hammer toe, likely due to significant neuropathy with weakness. Outpatient Therapy Assessment Impairments Problems/Impairmments Palpation Tenderness,Impaired Range of Motion,Impaired Walking,Impaired Standing, Impaired Stair Climbing, Subjective C/O Pain,Impaired Self Care/Self Management Prognosis Rehab Potential Good Comment Skilled therapy is indicated to improve B ankle ROM, improve gait pattern, and reduce pain in order to return pt to PLOF with all ADLs. Clinical Impression Consistent with Diagnosis Yes Short Term Goals Number of Weeks 2 Decreased Palpation Tenderness Yes: 1/ R foot Increase Range of Motion Yes: B ankles by 5 deg all dir . Increase Ability to Stand Yes: > 30 min without pain Improve LEFI Score Yes: 60 or more Decrease Subjective C/O Pain Yes: 4/10 B feet at worst Patient to be Ind w/ HEP Yes E D Tech Goals Number of Weeks 4 Decreased Palpation Tenderness Yes: 0/4 B feet Increase Range of Motion Yes: B ankle by 10 deg all dir Increase Ability to Walk Yes: > 30 min without pain Improve LEFI Score Yes: 65 or more Decrease Subjective C/O Pain Yes: 10 at worst B feet Patient to be Ind w/ Advanced HEP Yes Outpatient Therapy Plan of Care Treatment Plan May Include Therapeutic Exercise Including Home Yes Exercise Program Manual Therapy Techniques Yes Neuromuscular Re-education Yes Therapeutic Activities to Return to Yes Previous Functional/Work Level Gait Training Yes ADL/Self Care Education Yes Thermal Modalities Yes Electrical Stimulation Yes Ultrasound/Phonophoresis Yes Orthotics/Bracing/Splinting Yes Massage Yes Eval/Re-Eval Yes Frequency Times per week 2 Duration Number of Weeks 4 Addendums This patient is a candidate for social No or vocational rehab? Patient/Guardian verbally acknowledges Yes understanding of treatment program and consents to further treatment? Patient/Guardian verbally acknowledges Yes understanding of diagnosis, prognosis and goals for treatment? Eval Complexity PT Charges 74946 - High Complexity Shoulder/Elbow Eval Shoulder Objective Measurements Elbow Objective Measurements PHYSICIAN CERTIFICATION: I certify the specified therapy services for Leo Greer are required, authorized, and reviewed every 30 days.
== END 2025-03-21 23:59 | disposition home or self-care (01) ==
LOC: PT 13:00
PROVIDERS: PCP Family Medicine; Visit Provider Nurse Practitioner
DX: M72.2 Plantar fascial fibromatosis (principal); R20.0 Anesthesia of skin; R20.2 Paresthesia of skin
CPT/HCPCS: 97035; 97110; 97140; 97163; 97535

== ENCOUNTER 2025-04-03 13:17 | Outpatient (POV) | payer OTHER, SELFPAY ==
--- NOTE | 2025-04-03 13:56 | A.OFFVIS_ITS ---
[facility] Disclaimer: The information contained in this section may have been updated after the patient was seen, as this information can be updated by other users. Medical History History of hypertension Hx of multiple pulmonary nodules History of cardiac murmur Right inguinal pain Seasonal allergies Arthritis Surgical History H/O lateral meniscus repair of right knee H/O right inguinal hernia repair Family History Other Cancer Heart attack No significant family history Stroke Social History Smoking Status: Current every day smoker alcohol intake: current alcohol intake frequency: holidays/special occasions only substance use type: denies use current occupational status: other Travel in the last 8 weeks?: None marital status: PM Subjective & Objective Subjective Subjective:: Patient is a pleasant 64-year-old male who presents today for 4-month follow-up. Today he rates his pain a 2 out of 10. He denies any new falls or injuries. Patient does state that he has been experiencing other pains with the plantar fascia. He is seeing Dr. Castellano's office for this. Patient states they have tried multiple things and that he is scheduled to see Dr. Vann at the end of April for additional testing. Patient states he has been doing physical therapy as well. Patient states overall his right groin pain is doing okay and maintaining. Patient had his last right ilioinguinal nerve block back in October that did provide 75% improvement and is still working well. His Irving has been reviewed and is appropriate. Review of Systems: General: No recent weight changes, no fever, no sleep disturbances Respiratory: No cough, no shortness of air, no recurring pulmonary infections Cardiovascular/peripheral vascular: No chest pain, no palpitations, no edema, no shortness of breath Gastrointestinal: No new onset incontinence, normal bowel movements reported Genitourinary: No new onset incontinence Musculoskeletal: Feet pain Psychiatric: [Normal mood/affect] Neurological: [Denies weakness in extremities], [denies balance issues] Pain at rest (0-10 scale): 2 Objective Objective:: Physical Exam: General: Alert and oriented x3, no acute distress, pleasant and cooperative Lungs: Respirations even and unlabored, symmetrical chest expansion Eyes: PERRL Musculoskeletal: Flexion and extension of lumbar [spine] within normal limits Neurological: Speech clear, no gross sensory deficit Has patient had previous pain injection?: No Conservative treatment options previously tried: Home exercise plan Length of treatment: Longer than 12 weeks and Physical Therapy Length of treatment: Ongoing Meds Home Medications and Allergies Home Medications ?Medication ?Instructions ?Recorded ?Confirmed ?Type rosuvastatin 20 mg tablet 20 mg PO DAILY 04/12/24/04/24 History melatonin 5 mg capsule 5 mg PO HS 11/13/24 03/05/25 History sodium,potassium,mag sulfates 17.5 PO ONCE 11/13/24 History gram-3.13 gram-1.6 gram oral soln pregabalin 75 mg capsule 75 mg PO BID Pain 02/22/25 0 03/05/25 History leucovorin 4 mg-pyridoxal 1 tab-cap PO DAILY Neuropath y #30 03/05/25 03/05/25 Rx phosphate 50 mg-mecobalamin 2 mg tabs tablet (Folinic-Plus) magnesium chloride 71.5 mg mg PO muscle ache reduction nights 03/05/25 03/05/25 History (magnesium chloride) tablet,delayed release (Slow-Mag) New Prescriptions to Start Prescriptions: Allergies Allergy/AdvReac Type Severity Reaction Status Date / Time gabapentin Allergy Nausea Verified 03/05/25 13:53 Assessment and Plan *Assessment and plan (1) Right inguinal pain: Status: Acute Category: Medical Code(s): R10.31 - Right lower quadrant pain Plan I did discuss with patient due to his ongoing issues with plantar fasciitis that I will order him are compounded cream and he can try this in this location. Patient will return to clinic in 2 months for reevaluation of symptoms and plan of care. Patient has been instructed to contact the clinic with any concerns before the next appointment. Dr. Burnett has reviewed this note and agrees with this plan of care. This note was dictated using voice recognition software and make contain errors or omissions. All injections are used with Lidocaine, Bupivacaine and dexamethasone. Occasionally urine drug screen is needed to verify patient's compliance with our office pain contract. This is ordered based off specific treatments related to chronic pain with the potential to abuse certain medications.
[2025-04-03 14:04] VITALS: BP 134/70; PULSE 92; RESP 14; O2SAT 99; BMI 22.1
== END 2025-04-03 23:59 | disposition home or self-care (01) ==
PROVIDERS: PCP Family Medicine; Visit Provider Nurse Practitioner Family
DX: R10.31 Right lower quadrant pain (principal)
CPT/HCPCS: 99212; G0463

== ENCOUNTER 2025-04-18 15:00 | Outpatient (RCR) | payer MEDICARE, OTHER, SELFPAY ==
--- NOTE | 2025-04-16 15:16 | HMH.RHREAS ---
Rehab Reassessment Rehab OP Re-assessment Start: 04/02/25 14:56 Freq: Status: Active Protocol: Document 04/16/25 14:25 PHORNE (Rec: 04/16/25 15:16 PHORNE [id number]) E-signed By Pérez Figueroa PT Lower Extremity Functional Index Activities Today, do you or would you have any difficulty at all with: a.Any of your usual A little bit of difficulty work, housework or school activities b. Your usual Moderate difficulty hobbies, recreational or sporting activities c. Getting into or A little bit of difficulty out of the bath d. Walking between A little bit of difficulty rooms e. Putting on your A little bit of difficulty shoes or socks f. Squatting A little bit of difficulty g. Lifting an object A little bit of difficulty , like a bag of groceries from the floor h. Performing light No difficulty activities around your home i. Performing heavy Moderate difficulty activities around your home j. Getting into or No difficulty out of a car k. Walking 2 blocks No difficulty l. Walking a mile A little bit of difficulty m. Going up or down A little bit of difficulty 10 stairs (about 1 flight of stairs) n. Standing for 1 Moderate difficulty hour o. Sitting for 1 Moderate difficulty hour p. Running on even Extreme difficulty or unable to perform activity ground q. Running on uneven Extreme difficulty or unable to perform activity ground r. Making sharp Extreme difficulty or unable to perform activity turns while running fast s. Hopping Extreme difficulty or unable to perform activity t. Rolling over in Moderate difficulty bed LEFI Score Lower Extremity 46 Functional Index Score Rehab Re-assessment Subjective Subjective Pt reports he continues to have increased numbness, tingling, and intermittent burning pain in B feet. He reports no tenderness to palpation and feels he is walking fine, but the pain continues to limit his ability to perform all preferred activities. Objective Objective Notes Pain: 210 this date in B feet, described as burning and stinging, and not associated with any specific structure at this time. AROM B Ankles: WNL throughout. TTP: 0/4 on B feet this date. No tenderness noted at all on B plantar fascia. LEFS: 53 on IE vs 46 this date. Assessment Progress Assessment Progressing as Expected Assessment Notes Pt has shown significant improvements in B ankle ROM and pain with walking. However, he continues to have pain that appears to be neurologic in nature and more related to his B LE neuropathy verified by EMG/NCV than to plantar fascia at this time. LEFS score dropped by 7 points since his initial evaluation indicated perceived decrease in function, but AROM, strength, and tenderness to palpation of the plantar fascia have all improved. Pt likely needs further work-up for neuropathic pain at this time. Patient goals met ST/6 LT/6 Plan Plan Will d/c at this time to independent home exercise program. Frequency of Therapy 0 Duration of therapy 0 Time and Billing Re-Eval Time 11 Re-Eval Billing 0 Units Charge for PT No reassessment? PHYSICIAN CERTIFICATION: I certify the specified therapy services for Leo Greer are required, authorized, and reviewed every 30 days.
== END 2025-04-18 23:59 | disposition home or self-care (01) ==
LOC: PT 15:00
PROVIDERS: PCP Family Medicine; Visit Provider Nurse Practitioner
DX: M72.2 Plantar fascial fibromatosis (principal); R20.0 Anesthesia of skin; R20.2 Paresthesia of skin
CPT/HCPCS: 97035; 97110; 97140

== ENCOUNTER 2025-10-22 13:28 | Day surgery (SDC) | payer OTHER, MEDICARE, SELFPAY ==
[2025-10-22 13:35] VITALS: BP 128/82; PULSE 88; RESP 16; O2SAT 97; BMI 24.4
[2025-10-22 13:53] VITALS: BP 176/85; PULSE 83; RESP 18; O2SAT 98
[2025-10-22] MEDS: LIDOCAINE 1% 5ML PF VIAL 5 ML (13:53)
[2025-10-22] MEDS: DEXAMETHASONE 10MG/ML 1ML VIAL 10 MG (13:54)
--- NOTE | 2025-10-22 14:03 | P.PCN_ITS ---
Procedure Date: 10/22/25 Time: 14:00 Anesthesiologist:: William Lynn CRNA Complications:: None Pre-procedure Diagnosis:: Right inguinal pain. Post-procedure Diagnosis:: Same. Indications for Procedure:: Patient is a pleasant 65-year-old male who comes to clinic today for repeat right ilioinguinal nerve block. Patient reports 6 months of relief in terms of his right inguinal symptoms following his last inguinal nerve block. He rates his pain today 6/10. Procedure Details:: Details of the procedure explained to the patient. The patient taken procedure room placed in the supine position. The area over the right inguinal was cl eansed using chlorhexidine as a cleansing solution. Using ultrasound guidance in plane the needle was advanced through the exterior and internal oblique to the ilioinguinal ligament. After negative aspiration 10 cc of a solution containing 0.25% Marcaine +1% lidocaine and 40 mg of Depo-Medrol was injected. Patient tolerated procedure without difficulty. No complications. Plan and Disposition:: Patient was discharged without incident.
[2025-10-22 14:05] VITALS: BP 149/79; PULSE 81; RESP 16; O2SAT 99
== END 2025-10-22 14:05 | disposition home or self-care (01) ==
PROVIDERS: PCP Family Medicine; Visit Provider Nurse Anesthetist, Certified Registered
DX: R10.30 Lower abdominal pain, unspecified (principal); M19.90 Unspecified osteoarthritis, unspecified site; I10 Essential (primary) hypertension; Z98.890 Other specified postprocedural states; F17.200 Nicotine dependence, unspecified, uncomplicated; Z88.8 Allergy status to other drugs, medicaments and biological substances; Z79.899 Other long term (current) drug therapy
CPT/HCPCS: 64425; 76942; J1100; J2003